=== PATIENT | male | born 1945 | race Caucasian/White ===

== ENCOUNTER 2025-02-15 10:03 | Outpatient (CLI) | payer MEDICARE, SELFPAY ==
--- NOTE | ~2025-02-15 | MR_ITS ---
MRI of the right shoulder Technique: Axial proton-density fat-sat images, coronal proton density fat-sat and T2 fat-sat images, and sagittal T1-weighted and T2 fat-sat images were acquired. Clinical History: Pain Findings: There is moderate AC joint degenerative change with small subacromial spur present. [place]acoc lavicular, coracoacromial, and coracohumeral ligaments are intact. There is full-thickness tear involving the entire supraspinatus tendon, with fluid-filled gap measuri ng approximately 3.6 x 3.9 cm in extent. Infraspinatus tendon is intact, with advanced tendinosis. Th ere is severe tendinosis of the subscapularis tendon which is otherwise intact. Tendon of long head o f the biceps is intact with intra-articular tendinosis. Probable focal tear of the anterior labrum at the equator. Inferior glenohumeral ligament is intact. There is a small glenohumeral joint effusion with fluid pas sing through the rotator cuff defect into the subacromial/subdeltoid bursa. Suture anchors at the hum eral head are noted. No significant degenerative change of the glenohumeral joint. No muscle atrophy or edema. 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 Evidence of prio r rotator cuff repair surgery. Background advanced rotator cuff tendinosis, as detailed above. Focal tear of the anterior labrum at the equator. Moderate AC joint degenerative change. Reviewed, dictated and finalized at [facility]. 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 Evidence of prior rotator cuff repair surgery. Background advanced rotator cuff tendinosis, as detailed above. Focal tear of the anterior labrum at the equator. Moderate AC joint degenerative change.
== END 2025-02-15 10:04 | disposition home or self-care (01) ==
LOC: MICIMG 10:06
PROVIDERS: PCP Orthopaedic Surgery; Visit Provider Orthopaedic Surgery
DX: Z98.890 Other specified postprocedural states (principal); M19.011 Primary osteoarthritis, right shoulder; M75.121 Complete rotator cuff tear or rupture of right shoulder, not specified as traumatic
CPT/HCPCS: 73221